=== PATIENT | female | born 1980 | race Caucasian/White ===

== ENCOUNTER 2017-08-21 05:04 | Inpatient (IN) | payer MEDICAID, OTHER ==
[2017-08-21] VITALS (15 sets, daily range): BP systolic 90–117; BP diastolic 58–76; PULSE 57–84; RESP 16–18; TEMP 97.9–98.6; O2SAT 96–98
[~2017-08-21] VITALS: Ht 170.2 cm; Wt 74.8 kg
[~2017-08-21 05:04] MED LIST: BACT800T5 PO; TAB-TAB PO
[2017-08-21] MEDS ORDERED: LACTATED RINGER'S 1000 ML INJ 1,000 ML IV PRN (05:58)
[2017-08-21] MEDS: LACTATED RINGER'S 1000 ML INJ 1,000 ML IV SCH (05:58)
[2017-08-21] MEDS ORDERED: SODIUM CHLORID 0.9% 500 ML INJ 500 ML IV PRN (06:00)
[2017-08-21] MEDS ORDERED: CITRIC ACID-SODIUM CITRATE LIQ 30 ML UDC PO SCH (06:00)
[2017-08-21] MEDS ORDERED: OXYTOCIN 30 UNITS-500ML PREMIX 500 ML IV ONE (06:00)
[2017-08-21] MEDS ORDERED: MINERAL OIL 10 ML VIAL TOPICAL PRN (06:00)
[2017-08-21] MEDS ORDERED: LIDOCAINE HCL 1% 50 ML VIAL INFIL PRN (06:00)
[2017-08-21] MEDS ORDERED: LIDOCAINE HCL 1% 50 ML VIAL I-DERMAL PRN (06:00)
--- NOTE | 2017-08-21 06:03 | HHI.HP ---
HPI Chief Complaint Contractions Date Seen: Aug 21, 2017 Time Seen: 05:55 Travel History International Travel<30 Days: No Contact w/Intl Traveler<30Days: No Known Affected Area: No History of Present Illness HPI 36-year-old white female A1 at 39 weeks 2 presents complaining of contractions, no bleeding or leakage of fluid. She sees Dr. Carpenter in [place] but says she just did not think she could make it to [facility] 10[facility] away from here. She is beatris on the monitor and her NST is reactive, and we have a copy of her records sent over from [place] Weeks Gestation: 39 Para: 2 : 4 Miscarriage: 1 History Obstetric History Obstetric History 2 vaginal deliveries 1 early loss Social History Alcohol Use: No Tobacco Use: No Substance Abuse: No Allergies-Medications (Allergen,Severity, Reaction): Coded Allergies: penicillin G (Unverified Allergy, Unknown, UNKNOWN; , 10/23/16) Home Meds Active Scripts Sulfamethoxazole-Trimethoprim DS (Bactrim DS) 1 Tab Tab, 1 TAB PO BID, #6 TAB Prov:Uriah Kramer DO 07/15/13 Reported Medications Multiple Vitamin (Multivitamin) 1 Tab Tab, 1 TAB PO DAILY, TAB 07/15/13 Review of Systems General / Constitutional: No: Fever, Weight Gain, Chills, Other Eyes: No: Diploplia, Blurred Vision, Visual changes, Pain, Photophobia HENT: No: Headaches, Vertigo, Lightheadedness Cardiovascular: No: Irregular Rhythm, Chest Pain or Discomfort, Palpitations, Tachycardia, Syncope, Varicosities, Edema, Cyanosis Respiratory: No: Cough, Short of Breath, Other Gastrointestinal: No: Nausea, Vomiting, Diarrhea Genitourinary: No: Decreased Urinary Output, Oliguria Musculoskeletal: No: Limited ROM, Weakness, Cramping, Edema, Pain Skin: No Rash, No Itching, No Dryness, No Lumps, No Change in Pigmentation, No Change in Nails, No Alopecia, No Lesions Neurologic: No: Weakness, Dizziness, Syncope, Focal Abnormalities, Coordination Problem, Headache, Slurred Speech, Seizures Psychiatric: No: Depression, Suicidal Ideations, Homicidal Ideation Endocrine: No: Heat Intolerance, Cold Intolerance, Polydipsia, Polyuria, Other Physical Exam Narrative GENERAL: Well-nourished, well-developed patient. SKIN: Warm and dry. HEAD: Normocephalic and atraumatic. EYES: No scleral icterus. No injection or drainage. ENT: No nasal drainage noted. Mucous membranes pink. Airway patent. NECK: Supple, trachea midline. No JVD. CARDIOVASCULAR: Regular rate and rhythm without murmurs, gallops, or rubs. RESPIRATORY: Breath sounds equal bilaterally. No accessory muscle use. BREASTS: Bilateral exam showed no masses , no retractions, no nipple discharge. ABDOMEN/GI: Abdomen soft, non-tender, bowel sounds present, no rebound, no guarding Gravid to [39-] weeks size Fundal Height: [39-] GENITOURINARY: External Genitalia: intact and normal in appearance BUS glands: [-] Cervix: [mid-] Dilatation: [-5] Effacement: [-90] Station: [-1] Presentation: [-vtx] Membranes: [intact ] Uterine Contractions: [q 3 min-] FHT's: Category: [1-] Baseline: [133-] Reactive: [R-] Variability: [-mod] Decels: [-0] EXTREMITIES: No cyanosis or edema. BACK: Nontender without obvious deformity. No CVA tenderness. NEUROLOGICAL: Awake and alert. Motor and sensory grossly within normal limits. Five out of 5 muscle strength in all muscle groups. Normal speech. Caprini VTE Risk Assessment Caprini VTE Risk Assessment: No/Low Risk (score <= 1) Caprini Risk Assessment Model Point Value = 1 Point Value = 2 Point Value = 3 Point Value = 5 Age 41-60 Minor surgery BMI > 25 kg/m2 Swollen legs Varicose veins or History of unexplained or recurrent spontaneous Oral contraceptives or hormone replacement Sepsis (< 1 month) Serious lung disease, including pneumonia (< 1 month) Abnormal pulmonary function Acute myocardial infarction Congestive heart failure (< 1 month) History of inflammatory bowel disease Medical patient at bed rest Age 61-74 Arthroscopic surgery Major open surgery (> 45 min) Laparoscopic surgery (> 45 min) Malignancy Confined to bed (> 72 hours) Immobilizing plaster cast Central venous access Age >= 75 History of VTE Family history of VTE Factor V Leiden Prothrombin [id number] Lupus anticoagulant Anticardiolipin antibodies Elevated serum homocysteine Heparin-induced thrombocytopenia Other congenital or acquired thrombophilia Stroke (< 1 month) Elective arthroplasty Hip, pelvis, or leg fracture Acute spinal cord injury (< 1 month) Prophylaxis Regimen Total Risk Factor Score Risk Level Prophylaxis Regimen 0-1 Low Early ambulation 2 Moderate Order ONE of the following: *Sequential Compression Device (SCD) *Heparin 5000 units SQ BID 3-4 Higher Order ONE of the following medications: *Heparin 5000 units SQ TID *Enoxaparin/Lovenox 40 mg SQ daily (WT < 150 kg, CrCl > 30 mL/min) *Enoxaparin/Lovenox 30 mg SQ daily (WT < 150 kg, CrCl > 10-29 mL/min) *Enoxaparin/Lovenox 30 mg SQ BID (WT < 150 kg, CrCl > 30 mL/min) AND/OR *Sequential Compression Device (SCD) 5 or more Highest Order ONE of the following medications: *Heparin 5000 units SQ TID (Preferred with Epidurals) *Enoxaparin/Lovenox 40 mg SQ daily (WT < 150 kg, CrCl > 30 mL/min) *Enoxaparin/Lovenox 30 mg SQ daily (WT < 150 kg, CrCl > 10-29 mL/min) *Enoxaparin/Lovenox 30 mg SQ BID (WT < 150 kg, CrCl > 30 mL/min) AND *Sequential Compression Device (SCD) Data Data Orders Orders Ob (2e) Additional Admit Info (08/21/17 05:52) Admit To Inpatient (08/21/17 ) Vital Signs (Adult) .Per protocol (08/21/17 05:58) Heart (08/21/17 05:58) Amnioinfusion (08/21/17 05:58) Urinary Catheter Management .ONCE (08/21/17 05:58) Lactated Ringer's 1000 Ml Inj (Lr 1000 M (08/21/17 05:58) Lactated Ringer's 1000 Ml Inj (Lr 1000 M (08/21/17 05:58) Sodium Chlorid 0.9% 500 Ml Inj (Ns 500 M (08/21/17 06:00) Sodium Chlor 0.9% 1000 Ml Inj (Ns 1000 M (08/21/17 06:18) Lidocaine 1% Inj (50 Ml) (Xylocaine 1% I (08/21/17 06:00) Citric Acid-Sodium Citrate Liq (Bicitra (08/21/17 06:00) Fentanyl Inj (Fentanyl Inj) (08/21/17 06:00) Fentanyl Inj (Fentanyl Inj) (08/21/17 06:00) Complete Blood Count With Diff (08/21/17 05:58) Hold Clot (08/21/17 05:58) Abo/Rh Blood Type (08/21/17 05:58) Urinalysis - C+S If Indicated (08/21/17 05:58) Drug Screen, Random Urine (08/21/17 05:58) Ob/Psych Drug Screen, Urine (08/21/17 05:58) Resp Oxygen Non Rebreathe Mask (08/21/17 ) ^ Epidural / Intrathecal Infus (08/21/17 05:58) Oxytocin 30 Units-500ml Premix (Pitocin (08/21/17 06:00) Lidocaine 1% Inj (50 Ml) (Xylocaine 1% I (08/21/17 06:00) Light Mineral Oil (Muri-Lube Oil) (08/21/17 06:00) Group B Strep: Negative Assessment/Plan Assessment and Plan Impression--39 week intrauterine in active labor Plan-admit to labor and delivery, manage and augment labor as needed, anticipate vaginal delivery Georges Muñoz II, MD Aug 21, 2017 06:03
[2017-08-21] MEDS ORDERED: SODIUM CHLOR 0.9% 1000 ML INJ 1,000 ML IV PRN (06:18)
[2017-08-21] MEDS ORDERED: LIDOCAINE HCL 1% PF 30 ML VIAL ONE (06:33)
--- NOTE | 2017-08-21 06:44 | PD.OB.DELI ---
Weeks gestation: 39 Anesthesia: None Episiotomy: None Vaginal Delivery: Normal Presentation: Occiput anterior Nuchal Cord: None Delayed cord clamping (45 sec): Yes Infant: Female, Single Delivery date: Aug 21, 2017 Delivery time: 06:35 One Minute : 8 Five Minute : 9 Weight: 2825 gm Placenta: Spontaneous delivery, Intact Laceration: No lacerations Estimated blood loss: 100 cc Additional Information precipitate labor & delivery Georges Muñoz II, MD Aug 21, 2017 06:44
[2017-08-21] MEDS ORDERED: BENZOCAINE 20% TOPICAL SPRAY 60 ML CAN TOPICAL PRN (06:45)
[2017-08-21] MEDS ORDERED: WITCH HAZEL 50%/GLYCERIN 12.5% 40 PAD JAR TOPICAL PRN (06:45)
[2017-08-21] MEDS ORDERED: SODIUM CHLORIDE 0.9% FLUSH 10 ML FLUSH IV FLUSH PRN (06:45)
[2017-08-21] MEDS ORDERED: DOCUSATE SODIUM 50 MG/SENNA 8.6 MG TAB PO PRN (06:45)
[2017-08-21] MEDS ORDERED: ZOLPIDEM TARTRATE 5 MG TAB PO PRN (06:45)
[2017-08-21] MEDS ORDERED: ONDANSETRON ODT 4 MG TAB PO PRN (06:45)
[2017-08-21] MEDS ORDERED: ACETAMINOPHEN 325 MG TAB PO PRN (06:45)
[2017-08-21] MEDS ORDERED: OXYTOCIN 30 UNITS-500ML PREMIX 500 ML IV SCH (06:45)
[2017-08-21] MEDS ORDERED: ALUMINUM/MAGNESIUM/SIMETH 30 ML CUP PO PRN (06:45)
[2017-08-21] MEDS ORDERED: oxyCODONE/ACETAMINOPHEN 5 MG/325 MG TAB PO PRN (06:45)
[2017-08-21 06:55] LABS: AUTOMATED NEUTROPHIL # 8.7 TH/MM3 (1.8-7.7); BASOPHIL % 0.2 % (0.0-2.0); EOSINOPHIL # 0.2 TH/MM3 (0-0.4); EOSINOPHIL % 1.5 % (0.0-4.0); HEMATOCRIT 37.3 % (35.0-46.0); HEMOGLOBIN 12.9 GM/DL (11.6-15.3); LYMPHOCYTE # 1.8 TH/MM3 (1.0-4.8); MEAN CELL VOLUME 92.3 FL (80.0-100.0); MEAN CORPUSCULAR HEMOGLOBIN 31.9 PG (27.0-34.0); MEAN CORPUSCULAR HGB CONC 34.6 % (32.0-36.0); MEAN PLATELET VOLUME 7.3 FL (7.0-11.0); MONO % 6.7 % (0.0-8.0); MONOCYTE # 0.8 TH/MM3 (0-0.9); NEUT % 75.6 % (16.0-70.0); PLATELET COUNT 166 TH/MM3 (150-450); RED BLOOD COUNT 4.04 MIL/MM3 (4.00-5.30); WHITE BLOOD COUNT 11.6 TH/MM3 (4.0-11.0)
[2017-08-21 06:56] LABS: BACTERIA, URINE RARE /hpf; BILIRUBIN, URINE NEG (NEG); BLOOD, URINE SMALL (NEG); GLUCOSE,URINE NEG (NEG); KETONE, URINE 10 mg/dL (NEG); NITRITE,URINE NEG (NEG); SQUAMOUS EPITHELIAL CELL URINE 1 /hpf (0-5); URINE COLOR LIGHT-YELLOW (YELLW/STRAW); URINE LEUKOCYTE ESTERASE NEG (NEG)
[2017-08-21] MEDS: IBUPROFEN 800 MG TAB PO PRN ×2 (07:35→15:00)
[2017-08-21] MEDS ORDERED: MEASLES, MUMPS, RUBELLA VACCINE 0.5 ML VIAL SQ ONE (16:00)
[2017-08-21] MEDS ORDERED: DIPHTH/TETANUS/ACEL PERTUSSIS (BOOSTER) 0.5 ML VIAL/PFS IM ONE (16:00)
[2017-08-22] MEDS: IBUPROFEN 800 MG TAB PO PRN ×3 (06:46→23:54)
[2017-08-22] MEDS: SODIUM CHLORIDE 0.9% FLUSH 10 ML FLUSH IV FLUSH SCH (07:26)
--- NOTE | 2017-08-22 07:26 | HHI.OB ---
Subjective Post Day: 1 Remarks day # 1. AFVSS overnight. Pain well-controlled. Lochia < a period. Denies dysuria. She is feeding the baby via breast. Appetite good. No nausea or vomiting. Positive flatus. Positive bowel movement. Ambulating well. Denies calf pain, shortness of breath, or chest pain but endorses back pain. Otherwise, she is doing well this morning and has no other complaints. Objective Vitals/I&O Vital Signs Date Time Temp Pulse Resp B/P (MAP) Pulse Ox O2 Delivery O2 Flow Rate FiO2 08/21/17 20:05 98.2 61 18 109/66 (80) 98 08/21/17 08:50 116/73 (87) 08/21/17 08:50 57 16 96 08/21/17 08:24 61 106/60 (75) 08/21/17 08:01 64 90/66 (74) 08/21/17 07:52 16 08/21/17 07:45 57 102/58 (73) 08/21/17 07:38 18 08/21/17 07:31 66 106/62 (77) 08/21/17 07:30 17 Objective Remarks GENERAL: Well-nourished, well-developed patient. CARDIOVASCULAR: Regular rate and rhythm without murmurs, gallops, or rubs. RESPIRATORY: Breath sounds equal bilaterally. No accessory muscle use. ABDOMEN/GI: Abdomen soft, non-tender. Fundus: Firm, non-tender below umbilicus. GENITOURINARY: Light to moderate bleeding. EXTREMITIES: No cyanosis or edema, non-tender, without signs of DVT. Medications and IVs Current Medications Medications (Trade) Dose Ordered Sig/Bud Route Start Time Stop Time Status Last Admin Lactated Ringer's 1,000 ml @ 125 mls/hr Q8H IV 08/21/17 05:58 08/21/17 05:58 Lactated Ringer's 1,000 ml @ 3,000 mls/hr Q20M PRN IV 08/21/17 05:58 Sodium Chloride 1,000 ml @ 100 mls/hr Q10H PRN IV 08/21/17 06:18 (Xylocaine 1% Inj (50 ml)) 0.1 ml UNSCH X1 PRN I-DERMAL 08/21/17 06:00 08/24/17 05:59 (Bicitra Liq) 30 ml PSYCHOLOGICAL SCIENCE PROFESSOR PO 08/21/17 06:00 08/25/17 05:59 (fentaNYL INJ) 50 mcg Q1H PRN IV PUSH 08/21/17 06:00 (fentaNYL INJ) 100 mcg Q1H PRN IV PUSH 08/21/17 06:00 (Xylocaine 1% Inj (50 ml)) 10 ml UNSCH X1 PRN INFIL 08/21/17 06:00 08/23/17 05:59 (Muri-Lube Oil) 10 ml UNSCH PRN TOPICAL 08/21/17 06:00 (NS Flush) 2 ml BID IV FLUSH 08/21/17 09:00 (NS Flush) 2 ml UNSCH PRN IV FLUSH 08/21/17 06:45 (Tylenol) 650 mg Q4H PRN PO 08/21/17 06:45 (Motrin) 800 mg Q8H PRN PO 08/21/17 06:45 08/22/17 06:46 (Percocet 5-325 Mg) 1 tab Q4H PRN PO 08/21/17 06:45 (Americaine 20% Top Spr) 1 spray Q4H PRN TOPICAL 08/21/17 06:45 (Tucks Pads) 1 applic QID PRN TOPICAL 08/21/17 06:45 (Sliem-Colace) 2 tab Q12H PRN PO 08/21/17 06:45 (Ambien) 5 mg HS PRN PO 08/21/17 06:45 (Mag-Al Plus Susp Liq) 15 ml Q8H PRN PO 08/21/17 06:45 (Zofran Odt) 4 mg Q6H PRN PO 08/21/17 06:45 Assessment/Plan Assessment and Plan 36 y/o female who is PPD#1 s/p spontaneous vaginal delivery -Continue routine care -Motrin and Percocet PRN for pain -Pericolase PRN for constipation -Encouraged OOB. Advised pelvic rest for 6 wks -Will need a follow-up appointment within 6 wks for post- check -Re: ctrl -patient would like the patch Discussed with Dr. Hall Discharge Planning Plan to discharge home today if baby is cleared by pediatrics. Chel Rodas MD R2 Aug 22, 2017 07:26
[2017-08-22] MEDS ORDERED: PERI PO (07:27)
[2017-08-22] MEDS ORDERED: IBUP1TAB7 PO (07:27)
--- NOTE | 2017-08-22 07:28 | HHI.DCPOC ---
Discharge Care Plan Diagnosis: (1) Vaginal delivery Report Symptoms to Your Doctor -Temperature above 100.5 degrees -Redness, of incision or excessive or foul smelling drainage -Unusual pain or calf pain -Increased vaginal bleeding -Painful or difficulty urinating -Feelings of extreme sadness or anxiety after 2 weeks Goals to Promote Your Health * To prevent worsening of your condition and complications * To maintain your health at the optimal level Directions to Meet Your Goals Take your medications as prescribed Follow your dietary instruction Follow activity as directed Ensure plenty of rest for recovery Drink fluids for hydration Keep your appointments as scheduled Take your immunizations and boosters as scheduled If your symptoms worsen call your PCP, if no PCP go to Urgent Care Center or Emergency Room Smoking is Dangerous to Your Health. Avoid second hand smoke Call the 24-hour crisis hotline for domestic abuse at Chel Rodas MD R2 Aug 22, 2017 07:28
[2017-08-22 11:14] VITALS: BP 98/78; PULSE 60; RESP 16; TEMP 98.1; O2SAT 98
[2017-08-22 11:26] VITALS: BP 109/73; PULSE 62; RESP 16; TEMP 98.1; O2SAT 99
[2017-08-22] MEDS: LACTATED RINGER'S 1000 ML INJ 1,000 ML IV SCH (14:47)
[2017-08-22 20:00] VITALS: BP 101/64; PULSE 64; RESP 18; TEMP 98.2; O2SAT 99
[2017-08-23] MEDS: LACTATED RINGER'S 1000 ML INJ 1,000 ML IV SCH (07:27)
[2017-08-23] MEDS: SODIUM CHLORIDE 0.9% FLUSH 10 ML FLUSH IV FLUSH SCH (07:27)
[2017-08-23 08:05] VITALS: BP 108/69; PULSE 80; RESP 20; RESP 9; TEMP 97.9; O2SAT 99
--- NOTE | 2017-08-23 08:25 | HHI.OB ---
Subjective Remarks Patient is a 36-year-old delivered at 39 weeks and 2 days. Patient is day 2 after . Patient's pain is well-controlled. Patient reports eating and drinking without any nausea or vomiting. Patient reports minimal bleeding. Patient has passed gas and bowel movements. Patient is walking without lower extremity pain or shortness of breath. Patient reports desire for contraception arranged as outpatient and plans for both bottle and breast- feeding. Objective Vitals/I&O Vital Signs Date Time Temp Pulse Resp B/P (MAP) Pulse Ox O2 Delivery O2 Flow Rate FiO2 08/22/17 20:00 64 18 99 08/22/17 20:00 98.2 08/22/17 20:00 101/64 (76) 08/22/17 11:26 98.1 62 16 109/73 99 08/22/17 11:14 98.1 60 16 98/78 98 Objective Remarks GENERAL: Well-nourished, well-developed patient. CARDIOVASCULAR: Regular rate and rhythm without murmurs, gallops, or rubs. RESPIRATORY: Breath sounds equal bilaterally. No accessory muscle use. ABDOMEN/GI: Abdomen soft, non-tender. Fundus: Firm, non-tender below umbilicus. GENITOURINARY: Light to moderate bleeding. EXTREMITIES: No cyanosis or edema, non-tender, without signs of DVT. Medications and IVs Current Medications Medications (Trade) Dose Ordered Sig/Bud Route Start Time Stop Time Status Last Admin Lactated Ringer's 1,000 ml @ 125 mls/hr Q8H IV 08/21/17 05:58 08/21/17 05:58 Lactated Ringer's 1,000 ml @ 3,000 mls/hr Q20M PRN IV 08/21/17 05:58 Sodium Chloride 1,000 ml @ 100 mls/hr Q10H PRN IV 08/21/17 06:18 (Xylocaine 1% Inj (50 ml)) 0.1 ml UNSCH X1 PRN I-DERMAL 08/21/17 06:00 08/24/17 05:59 (Bicitra Liq) 30 ml FOOD PREP WORKER PO 08/21/17 06:00 08/25/17 05:59 (fentaNYL INJ) 50 mcg Q1H PRN IV PUSH 08/21/17 06:00 (fentaNYL INJ) 100 mcg Q1H PRN IV PUSH 08/21/17 06:00 (Muri-Lube Oil) 10 ml UNSCH PRN TOPICAL 08/21/17 06:00 (NS Flush) 2 ml BID IV FLUSH 08/21/17 09:00 (NS Flush) 2 ml UNSCH PRN IV FLUSH 08/21/17 06:45 (Tylenol) 650 mg Q4H PRN PO 08/21/17 06:45 (Motrin) 800 mg Q8H PRN PO 08/21/17 06:45 08/22/17 23:54 (Percocet 5-325 Mg) 1 tab Q4H PRN PO 08/21/17 06:45 (Americaine 20% Top Spr) 1 spray Q4H PRN TOPICAL 08/21/17 06:45 (Tucks Pads) 1 applic QID PRN TOPICAL 08/21/17 06:45 (Slime-Colace) 2 tab Q12H PRN PO 08/21/17 06:45 (Ambien) 5 mg HS PRN PO 08/21/17 06:45 (Mag-Al Plus Susp Liq) 15 ml Q8H PRN PO 08/21/17 06:45 (Zofran Odt) 4 mg Q6H PRN PO 08/21/17 06:45 Assessment/Plan Assessment and Plan 36 y/o female who is PPD#2 s/p spontaneous vaginal delivery -Continue routine care -Motrin and Tylenol PRN for pain -Pericolase PRN for constipation -Encouraged OOB. Advised pelvic rest for 6 wks -Will need a follow-up appointment within 6 wks for post- check -Re: ctrl -patient would like the patch arranged as outpatient Discharge Planning Plan to discharge home today Jono Ulrich MD R1 Aug 23, 2017 08:25
[2017-08-23] MEDS: IBUPROFEN 800 MG TAB PO PRN (09:39)
== END 2017-08-23 12:30 | disposition home or self-care (01) | DRG 775 ==
LOC: HOBED 05:04 → H2EB 05:53 → H1EA 09:09
PROVIDERS: ADMIT Obstetrics & Gynecology Maternal & Fetal Medicine; ATTEND Obstetrics & Gynecology Maternal & Fetal Medicine
PROC: 10E0XZZ Delivery of Products of Conception, External Approach (ICD-10-PCS; principal; 2017-08-21)
DX: O62.3 Precipitate labor (principal); Z37.0 Single live birth; Z3A.39 39 weeks gestation of pregnancy
CPT/HCPCS: 59025; 80307; 81001; 85025; 85461; 86850; 86900; 86901; 90384; 90715; G0481; J2590; J2790; J7120